=== PATIENT | female | born 1970 | race Caucasian/White ===

== ENCOUNTER 2017-01-28 10:52 | Emergency (ER) | payer OTHER ==
[~2017-01-28] VITALS: Ht 149.9 cm; Wt 43.0 kg
[2017-01-28 10:55] VITALS: BP 106/64; PULSE 126; RESP 34; TEMP 98.1; O2SAT 100
[2017-01-28] MEDS ORDERED: SODIUM CHLOR 0.9% 1000 ML INJ 1,000 ML IV ONE (11:08)
--- NOTE | 2017-01-28 11:11 | PD ---
HPI Chief Complaint: Flank/Kidney Pain Time Seen by Provider: 11:05 Travel History International Travel<30 days: No Contact w/Intl Traveler<30days: No Traveled to known affect area: No History of Present Illness HPI This is a 46-year-old female presents for evaluation of left flank pain that radiates into the abdomen. Symptoms started this morning. The pain is an aching pain, constant. Tried taking ibuprofen this morning but symptoms persist. Denies nausea, vomiting, fevers, chills, hematuria, dysuria. She had a similar pain 2 weeks ago and was diagnosed with a 3 mm left ureteral stone at the ureterovesicular junction at that time. A repeat CT scan performed last week revealed no evidence of remaining stone. The pain had previously resolved until today. No other complaints. PFSH Past Medical History Medical History: Denies Significant Hx ?: Not Social History Alcohol Use: No Tobacco Use: No Allergies-Medications (Allergen,Severity, Reaction): Coded Allergies: No Known Allergies (Unverified , 01/28/17) Reported Meds & Prescriptions Reported Meds & Active Scripts Active Ketorolac (Ketorolac Tromethamine) 10 Mg Tab 10 Mg PO Q6HR PRN Zofran (Ondansetron HCl) 4 Mg Tab 4 Mg PO Q6HR PRN Lortab (Hydrocodone-Acetaminophen) 5-325 Mg Tab 1 Tab PO Q6H PRN Flomax (Tamsulosin HCl) 0.4 Mg Cap 0.4 Mg PO HS 7 Days Review of Systems Except as stated in HPI: all other systems reviewed are Neg Physical Exam Narrative GENERAL: Well-developed well-nourished female who appears to be uncomfortable. She is tachycardic in triage. SKIN: Warm and dry. No rash. HEAD: Atraumatic. Normocephalic. EYES: Pupils equal and round. No scleral icterus. No injection or drainage. CARDIOVASCULAR: Regular rate and rhythm. No murmur appreciated. RESPIRATORY: No accessory muscle use. Clear to auscultation. Breath sounds equal bilaterally. GASTROINTESTINAL: Abdomen soft, some tenderness to palpation left side without guarding. Left CVA tenderness is present. MUSCULOSKELETAL: No obvious deformities. No edema. NEUROLOGICAL: Awake and alert. No obvious cranial nerve deficits. Motor grossly within normal limits. Normal speech. PSYCHIATRIC: Appropriate mood and affect; insight and judgment normal. Data Data Last Documented VS Vital Signs Date Time Temp Pulse Resp B/P Pulse Ox O2 Delivery O2 Flow Rate FiO2 01/28/17 11:32 88 Nasal Cannula 2 01/28/17 10:55 98.1 126 34 106/64 Orders Complete Blood Count With Diff (01/28/17 11:08) Comprehensive Metabolic Panel (01/28/17 11:08) Urinalysis - C+S If Indicated (01/28/17 11:08) Ct Abd/Pel W/O Iv Contrast (01/28/17 11:08) Ketorolac Inj (Toradol Inj) (01/28/17 11:15) Morphine Inj (Morphine Inj) (01/28/17 11:15) Ondansetron Inj (Zofran Inj) (01/28/17 11:15) Sodium Chlor 0.9% 1000 Ml Inj (Ns 1000 M (01/28/17 11:08) Ecg Monitoring (01/28/17 11:08) Oximetry (01/28/17 11:08) Lipase (01/28/17 11:08) Potassium Chloride (Kcl) (01/28/17 12:45) Urine Culture (01/28/17 12:28) Radiology Film Requests (01/28/17 ) Labs Laboratory Tests Test 01/28/17 01/28/17 11:20 12:28 White Blood Count 8.4 TH/MM3 Red Blood Count 4.59 MIL/MM3 Hemoglobin 13.5 GM/DL Hematocrit 40.3 % Mean Corpuscular Volume 87.9 FL Mean Corpuscular Hemoglobin 29.4 PG Mean Corpuscular Hemoglobin 33.5 % Concent Red Cell Distribution Width 12.9 % Platelet Count 277 TH/MM3 Mean Platelet Volume 7.5 FL Neutrophils (%) (Auto) 65.1 % Lymphocytes (%) (Auto) 27.9 % Monocytes (%) (Auto) 5.2 % Eosinophils (%) (Auto) 1.5 % Basophils (%) (Auto) 0.3 % Neutrophils # (Auto) 5.4 TH/MM3 Lymphocytes # (Auto) 2.3 TH/MM3 Monocytes # (Auto) 0.4 TH/MM3 Eosinophils # (Auto) 0.1 TH/MM3 Basophils # (Auto) 0.0 TH/MM3 CBC Comment DIFF FINAL Differential Comment Sodium Level 139 MEQ/L Potassium Level 3.3 MEQ/L Chloride Level 107 MEQ/L Carbon Dioxide Level 19.0 MEQ/L Anion Gap 13 MEQ/L Blood Urea Nitrogen 11 MG/DL Creatinine 0.87 MG/DL Estimat Glomerular Filtration 71 ML/MIN Rate Random Glucose 87 MG/DL Calcium Level 8.5 MG/DL Total Bilirubin 0.5 MG/DL Aspartate Amino Transf 17 U/L (AST/SGOT) Alanine Aminotransferase 29 U/L (ALT/SGPT) Alkaline Phosphatase 82 U/L Total Protein 7.3 GM/DL Albumin 4.0 GM/DL Lipase 126 U/L Urine Color YELLOW Urine Turbidity CLEAR Urine pH 6.5 Urine Specific [place] 1.006 Urine Protein NEG mg/dL Urine Glucose (UA) NEG mg/dL Urine Ketones NEG mg/dL Urine Occult Blood NEG Urine Nitrite NEG Urine Bilirubin NEG Urine Urobilinogen LESS THAN 2.0 MG/DL Urine Leukocyte Esterase NEG Urine RBC 1 /hpf Urine WBC 2 /hpf Urine Squamous Epithelial 1 /hpf Cells Urine Bacteria MOD /hpf Urine Mucus FEW /lpf Microscopic Urinalysis Comment CULTURE INDICATED MDM Medical Decision Making Medical Screen Exam Complete: Yes Emergency Medical Condition: Yes Medical Record Reviewed: Yes Interpretation(s) CT abdomen and pelvis CONCLUSION: 1. There is a 3-4 mm calcification seen in the low pelvis. This is felt to be in the distal left ureter just above the ureterovesicular junction. There are mild hydronephrotic changes of the left kidney. Differential Diagnosis Ureteral stone, hydronephrosis, pyelonephritis, diverticulitis, ovarian cyst, ovarian torsion Narrative Course 46-year-old female with one-day history of left flank pain that radiates in the left side of her abdomen. She had similar pain 2 weeks ago when she was found to have a left 3 mm ureteral stone. On initial examination she is uncomfortable , tachycardic. Plan is for basic lab work, CT abdomen and pelvis. She will be placed on ECG monitoring and pulse oximetry. The patient will be given morphine , Zofran, Toradol, IV fluids. CT imaging reveals a 3-4 mm stone in the distal left ureter at the ureterovesicular junction. Upon examination the patient's pain is significantly improved. Her potassium is mildly low at 3.3, she was given 40 mEq of potassium chloride here. Urinalysis reveals moderate bacteria, no symptoms to suggest true urinary tract infection, no pyuria or nitrites in the urine. The patient is stable for discharge. She'll be given copies of her CT report, CT on film, lab work to bring with her when she follows up next week with her primary care physician. She'll be given the name of a local urologist in case she wants to follow-up prior to returning to [place] in 5 days. Discussed signs and symptoms that would warrant returning to the emergency room. She is stable for discharge. Diagnosis Primary Impression: Left ureteral stone Referrals: Anil Lopez DO Additional Instructions: Medication as needed. Do not drive or drink alcohol when taking Lortab. Stay well hydrated and well-nourished. Follow-up with your primary care physician. Follow-up with a urologist such as Dr. Lopez as needed. Return for any acutely new or worsening symptoms such as intractable pain, persistent vomiting , fevers. Med/Other Pt SpecificInfo: Prescription(s) given Scripts Ketorolac 10 Mg Tab10 Mg PO Q6HR PRN (PAIN) #20 TAB Ref 0 Prov:Apurva Higgins DO 01/28/17 Ondansetron (Zofran)4 Mg Tab4 Mg PO Q6HR PRN (NAUSEA OR VOMITING) #20 TAB Ref 0 Prov:Apurva Higgins DO 01/28/17 Hydrocodone-Acetaminophen (Lortab)5-325 Mg Tab1 Tab PO Q6H PRN (PAIN) #20 TAB Ref 0 Prov:Apurva Higgins DO 01/28/17 Tamsulosin (Flomax)0.4 Mg Cap0.4 Mg PO HS 7 Days Ref 0 Prov:Apurva Higgins DO 01/28/17 Disposition: 01 DISCHARGE HOME Condition: Stable Berry Lino Jan 28, 2017 11:11
[2017-01-28] MEDS ORDERED: ONDANSETRON HCL 4 MG/2 ML VIAL IVP ONE (11:15)
[2017-01-28] MEDS ORDERED: MORPHINE SULFATE 4 MG/ML INJ IV ONE (11:15)
[2017-01-28] MEDS ORDERED: KETOROLAC TROMETHAMINE 30 MG/ML (IVP) VIAL IVP ONE (11:15)
[2017-01-28 11:32] VITALS: O2SAT 88
[2017-01-28 11:36] LABS: AUTOMATED NEUTROPHIL # 5.4 TH/MM3 (1.8-7.7); BASOPHIL % 0.3 % (0.0-2.0); EOSINOPHIL # 0.1 TH/MM3 (0-0.4); EOSINOPHIL % 1.5 % (0.0-4.0); HEMATOCRIT 40.3 % (35.0-46.0); HEMO FLAGS DIFF FINAL; LYMPH % 27.9 % (9.0-44.0); LYMPHOCYTE # 2.3 TH/MM3 (1.0-4.8); MEAN CELL VOLUME 87.9 FL (80.0-100.0); MEAN CORPUSCULAR HEMOGLOBIN 29.4 PG (27.0-34.0); MEAN CORPUSCULAR HGB CONC 33.5 % (32.0-36.0); MONO % 5.2 % (0.0-8.0); NEUT % 65.1 % (16.0-70.0); PLATELET COUNT 277 TH/MM3 (150-450); RED BLOOD COUNT 4.59 MIL/MM3 (4.00-5.30); RED CELL DISTRIBUTION WIDTH 12.9 % (11.6-17.2); WHITE BLOOD COUNT 8.4 TH/MM3 (4.0-11.0)
[2017-01-28 12:03] LABS: ANION GAP 13 MEQ/L (5-15); AST (GOT) 17 U/L (15-37); BLOOD UREA NITROGEN 11 MG/DL (7-18); CHLORIDE 107 MEQ/L (98-107); GLOMERULAR FILTRATION RATE 71 ML/MIN (>89); POTASSIUM 3.3 MEQ/L (3.5-5.1); SODIUM (NA) 139 MEQ/L (136-145)
[2017-01-28 12:04] LABS: ALT (GPT) 29 U/L (10-53)
[2017-01-28 12:06] LABS: ALKALINE PHOSPHATASE 82 U/L (45-117); TOTAL BILIRUBIN ADULT 0.5 MG/DL (0.2-1.0)
[2017-01-28 12:43] LABS: BACTERIA, URINE MOD /hpf; BLOOD, URINE NEG (NEG); COMMENT (UR) CULTURE INDICATED; CULTURE IF INDICATED CULTURE INDICATED; GLUCOSE,URINE NEG (NEG); KETONE, URINE NEG (NEG); MUCUS URINE FEW /lpf (OCC); NITRITE,URINE NEG (NEG); PH, URINE 6.5 (5.0-8.5); SQUAMOUS EPITHELIAL CELL URINE 1 /hpf (0-5); URINE COLOR YELLOW (YELLW/STRAW)
[2017-01-28] MEDS ORDERED: POTASSIUM CHLORIDE 20 MEQ CONTROLLED RELEASE TAB PO ONE (12:45)
--- NOTE | 2017-01-28 12:48 | RADRPT ---
EXAM DATE/TIME: 01/28/2017 12:06 [facility] COMPARISON: No previous studies available for comparison. INDICATIONS : Left flank pain. ORAL CONTRAST: No oral contrast ingested. RADIATION DOSE: 2.50 CTDIvol (mGy) MEDICAL HISTORY : None SURGICAL HISTORY : None. ENCOUNTER: Initial ACUITY: 2 days PAIN SCALE: 7/10 LOCATION: Left flank TECHNIQUE: Volumetric scanning of the abdomen and pelvis was performed. Using automated exposure control and ad justment of the mA and/or kV according to patient size, radiation dose was kept as low as reasonably achievable to obtain optimal diagnostic quality images. FINDINGS: Left kidney/ureter: There are mild hydronephrotic changes. The proximal left ureter is dilated. It is followed down to th e low pelvis. Distally, I believe there is a 3-4 mm stone in the distal aspect the left ureter just a catherine the ureterovesicular junction. Right kidney/ureter: The right kidney is normal in size. There is no hydronephrosis. The right ureter appears normal in ca liber. Bladder: No stones are identified within the bladder. CT source data: The limited portion of the lung base visualized is clear. Examination of the liver demonstrates a 9 m m, nonspecific low attenuation lesion. The liver is otherwise unremarkable in appearance. The appeara nce of the spleen, pancreas and adrenal glands is unremarkable. The abdominal aorta is normal in dean jh. No free air or free fluid is identified. No retroperitoneal adenopathy is present. There is no f ree fluid within the pelvis. No iliac or inguinal adenopathy is seen. CONCLUSION: 1. There is a 3-4 mm calcification seen in the low pelvis. This is felt to be in the distal left uret er just above the ureterovesicular junction. There are mild hydronephrotic changes of the left kidney . Matteo Motley MD on January 28, 2017 at 12:40 Board Certified Radiologist. This report was verified electronically.
[2017-01-28] MEDS ORDERED: KETO10 PO (12:59)
[2017-01-28] MEDS ORDERED: ZOFR4TAB PO (12:59)
[2017-01-28] MEDS ORDERED: HYDR-3533 PO (12:59)
[2017-01-28] MEDS ORDERED: TAMS5CAP PO (12:59)
[2017-01-28 13:50] VITALS: BP 119/47
== END 2017-01-28 14:29 | disposition home or self-care (01) ==
LOC: NEPE 10:52
DX: N20.1 Calculus of ureter (principal)
CPT/HCPCS: 74176; 80053; 81001; 83690; 85025; 87086; 96374; 96375; 99285; J1885; J2270; J2405; J7030